=== PATIENT | male | born 1985 | race Caucasian/White ===

== ENCOUNTER 2022-11-21 16:06 | Emergency (ER) | payer OTHER ==
[~2022-11-21] VITALS: Ht 180.3 cm; Wt 80.7 kg
[2022-11-21 16:22] VITALS: BP 133/67
[2022-11-21 16:40] LABS: APPEARANCE,URINE CLEAR (CLEAR); BILIRUBIN,URINE NEGATIVE (NEGATIVE); COLOR,URINE YELLOW (YELLOW); GLUCOSE, URINE (UA) NEGATIVE (NEGATIVE); KETONES,URINE NEGATIVE (NEGATIVE); LEUKOCYTE ESTERASE ,URINE 25 Leu/uL (NEGATIVE); NITRATE,URINE NEGATIVE (NEGATIVE); OCCULT BLOOD,URINE NEGATIVE (NEGATIVE); PROTEIN,URINE NEGATIVE (NEGATIVE); UROBILINOGEN,URINE 0.2 mg/dL (0.2-1.0)
[2022-11-21 16:55] LABS: BACTERIA,URINE RARE /HPF (None Seen); MUCUS,URINE RARE LPF (None Seen); SQUAMOUS EPITHELIAL CELL,UR RARE /HPF (0-2)
[2022-11-21 17:28] LABS: BASOPHILS % (AUTO) 0.6 % (0.0-5.0); HEMATOCRIT 37.7 % (42-54); LYMPHOCYTES % (AUTO) 27.8 % (21.0-51.0); MEAN CORPUSCULAR HEMOGLOBIN 27.4 pg (27.0-33.0); MEAN CORPUSCULAR HGB CONC 32.9 g/dL (32.0-36.0); MEAN CORPUSCULAR VOLUME 83.4 fL (79-99); MONOCYTES % (AUTO) 9.9 % (3.0-13.0); NEUTROPHILS % (AUTO) 60.5 % (40.0-77.0); PLATELET COUNT (AUTO) 291 K/uL (130-400); RED BLOOD CELL COUNT(AUTO) 4.52 MIL/uL (4.50-6.20); WHITE BLOOD COUNT (AUTO) 6.3 K/uL (4.8-10.8)
[2022-11-21 17:45] LABS: CARBON DIOXIDE 31 mmol/L (21-32); CHLORIDE 102 mmol/L (101-111); CREATININE 0.6 mg/dL (0.5-1.5); GLOMERULAR FILTR. RATE CALC 160 mL/min (>60); GLUCOSE,RANDOM 96 mg/dL (70-105); POTASSIUM 3.9 mmol/L (3.5-5.1); SODIUM SERUM 137 mmol/L (136-145); UREA NITROGEN, BLOOD 16 mg/dL (7-18)
[2022-11-21 17:49] LABS: ALANINE AMINOTRANSFERASE 35 U/L (12-78); ALBUMIN 3.5 g/dL (3.5-5.0); ALCOHOL, BLOOD < 3 mg/dL (0-10); ASPARTATE AMINOTRANSFERASE 23 U/L (10-37); TOTAL PROTEIN, SERUM 6.5 g/dL (6.0-8.3)
[2022-11-21 17:51] LABS: ACETAMINOPHEN < 1 mcg/mL (10-29); SALICYLATE < 2.8 mg/dL (2.8-20.0)
[2022-11-21 18:16] LABS: AMPHET/METH SCREEN,URINE NEGATIVE (NEGATIVE); BARBITURATE SCREEN, URINE NEGATIVE (NEGATIVE); BENZODIAZEPINES SCREEN,URINE NEGATIVE (NEGATIVE); CANNABINOID SCREEN,URINE POSITIVE (NEGATIVE); COCAINE SCREEN,URINE NEGATIVE (NEGATIVE); OPIATE SCREEN,URINE NEGATIVE (NEGATIVE); PHENCYCLIDINE SCREEN,URINE NEGATIVE (NEGATIVE)
[2022-11-21] MEDS ORDERED: HYDROXYZINE 25 MG TABLET PO ONE (21:30)
[2022-11-21] MEDS ORDERED: HYDROXYZINE 100MG/2ML VIAL IM SCH (21:30)
[2022-11-21] MEDS ORDERED: LORAZEPAM 2 MG/ML 1 ML VIAL IM ONE (23:00)
[2022-11-21] MEDS ORDERED: HALOPERIDOL INJ 5 MG/ML VIAL IM SCH (23:00)
[2022-11-22] MEDS ORDERED: LORAZEPAM 2 MG/ML 1 ML VIAL IM ONE (04:30)
[2022-11-22] MEDS ORDERED: HALOPERIDOL INJ 5 MG/ML VIAL IM SCH (04:30)
[2022-11-22] MEDS ORDERED: HYDROXYZINE 100MG/2ML VIAL IM SCH (10:00)
[2022-11-22] MEDS ORDERED: HYDROXYZINE 50MG VIAL 50 MG/ML VIAL IM SCH (10:30)
== END 2022-11-22 15:24 ==
LOC: EDH 16:06
DX: R44.0 Auditory hallucinations (principal); R44.1 Visual hallucinations; Z20.822 Contact with and (suspected) exposure to COVID-19
CPT/HCPCS: 99284; 87635; 82550; 80053; 80305; 85025; 87088; 81001; 36415; 96372 ×2; G0481; C9803; J1630 ×2; J2060 ×2; J3410